=== PATIENT | female | born 2000 | race Caucasian/White ===

== ENCOUNTER → 2020-07-23 | Outpatient (CLI) | payer OTHER ==
[~2020-07-23] MED LIST: GADOBUTROL 7.5 MMOL/7.5 ML (GADAVIST) VIAL IV ONE; IOHEXOL 240 MGI/ML 50 ML (OMNIPAQUE) VIAL IV ONE; LIDOCAINE 1% INJ 20 ML 20 ML VIAL ONE
--- NOTE | 2020-07-23 11:51 | Diagnostic Imaging Report ---
Right elbow arthrogram for MRI. Indication: Pain Findings: After preparation of skin and administration of local anesthesia, a 21-gauge needle was advanced into the elbow joint space. Approximately 5 mL of a combination of sodium chloride Omnipaque 340 and Gadavist was infused. The patient tolerated procedure well and was sent to the MR suite in good condition. Impression: There has been successful injection of the right elbow joint. MRI is pending for further study. Dictated by: Dictated on workstation # [id number]
--- NOTE | 2020-07-23 12:42 | Diagnostic Imaging Report ---
PROCEDURE: MRI upper extremity any joint with contrast right. TECHNIQUE: Multiplanar, multisequence contrast-enhanced MRI of the right upper extremity was accomplished. INDICATION: Injury, arm pain. There are no prior studies available for comparison. This exam is less than optimal as some of the contrast extravasated into the adjacent soft tissues. On the coronal T1 fat saturated series, there is slight irregularity of the attachment of the ulnar collateral ligament to the medial epicondyle. I am concerned that the ulnar collateral ligament is partially torn. The lateral ulnar collateral ligament is intact. There is no sign of an injury to the common extensor or flexor bundles. The biceps tendon insertion and the triceps tendon appear to be intact. There is no abnormal signal arising from the osseous structures to suggest bone edema or fracture. IMPRESSION: 1. The indistinct appearance of the attachment of the ulnar collateral to the medial epicondyle does suggest that the ligament is partially torn. 2. The other major ligaments and tendons are intact. 3. There is no sign of an acute bony abnormality. Dictated by: Dictated on workstation # [id number]
== END ==
LOC: RAD 09:58
PROVIDERS: ATTEND Orthopaedic Surgery
DX: S53.441S Ulnar collateral ligament sprain of right elbow, sequela (principal)
CPT/HCPCS: 24220; 73085; 73222